=== PATIENT | female | born 1975 | race Caucasian/White ===

== ENCOUNTER 2021-03-22 07:25 | Day surgery (SDC) | payer OTHER, SELFPAY ==
[~2021-03-22] VITALS: Ht 157.5 cm; Wt 81.6 kg
[2021-03-22] MEDS ORDERED: fentaNYL citrate 0.05 MG/ML VIAL ONE (08:55)
[2021-03-22] MEDS ORDERED: MIDAZOLAM 5 MG/5 ML VIAL ONE (08:55)
[2021-03-22] MEDS ORDERED: LIDOCAINE 2% 100 MG/5 ML UJET TP ONE ×2 (08:55→09:35)
[2021-03-22] MEDS ORDERED: fentaNYL citrate 0.05 MG/ML VIAL IVP ONE (09:40)
== END 2021-03-22 10:45 | disposition home or self-care (01) ==
LOC: MDS 07:25 → MMU 07:26 → MDS 10:45
PROVIDERS: ATTEND Internal Medicine Gastroenterology
DX: R19.5 Other fecal abnormalities (principal); D12.2 Benign neoplasm of ascending colon; D12.4 Benign neoplasm of descending colon; K52.9 Noninfective gastroenteritis and colitis, unspecified; E66.9 Obesity, unspecified; F41.9 Anxiety disorder, unspecified; E78.00 Pure hypercholesterolemia, unspecified; F32.9 Major depressive disorder, single episode, unspecified; J45.909 Unspecified asthma, uncomplicated; Z79.899 Other long term (current) drug therapy; Z20.828 Contact with and (suspected) exposure to other viral communicable diseases
CPT/HCPCS: 45380; 45385; 81025; 88305; J3010; U0003; J2250